=== PATIENT | female | born 1940 | race Caucasian/White ===

== ENCOUNTER 2016-07-06 11:18 | Emergency (ER) | payer BC, OTHER ==
[~2016-07-06] VITALS: Ht 160 cm; Wt 84.0 kg
[~2016-07-06 11:18] MED LIST: AMLODIPINE BESY10 MG PO; ANTIVERT25 MG PO; ATARAX,VISTARIL25 MG PO; BUSPIRONE HCL5 MG PO; CHLORTHALIDONE50 MG PO; CITALOPRAM HBR20 MG PO; CORTIZONE-10 PL57 GM TP; CRESTOR20 MG PO; CYMBALTA60 MG PO; Ecotrin PO; FLEXERIL10 MG PO; HUMALOG100 UNIT/2 SC; LEVEMIR100 UNIT/2 SC; LEVOTHROID100 MCG PO; LORTAB 5-325 M1 EACH PO; LOSARTAN POTAS100 MG PO; MACROBID100 MG PO; MOTRIN600 MG PO; NEXIUM40 MG PO; PREDNISONE20 MG PO; REQUIP4 MG PO; SKELAXIN800 MG PO; ULTRAM50 MG PO; VENLAFAXINE H37.5 MG PO; VITAMIN D31000 UNIT PO
[2016-07-06 11:56] LABS: HEMATOCRIT 39.5 % (36.0-46.0); MCH 30.8 PG (29.0-34.0); MCHC 35.2 G/DL (30.0-36.0); MCV 87.6 FL (83-99); MEAN PLAT.VOLUME 10.1 uM^3 (9.5-12.4); PLATELET COUNT 158 K/uL (156-360); RBC DIS.WIDTH-CV 13.1 % (11.8-14.6); RBC DIS.WIDTH-SD 40.8 % (39-53); RED BLOOD COUNT 4.51 M/uL (3.80-5.20); WHITE BLOOD COUNT 4.2 K/uL (4.1-10.2)
[2016-07-06 12:07] LABS: CHLORIDE 104 mEq/L (99-109); POTASSIUM 4.3 mEq/L (3.7-5.4); SODIUM 141 mEq/L (136-147)
[2016-07-06 12:10] LABS: GLUCOSE 179 mg/dL (70-99)
[2016-07-06 12:11] LABS: ANION GAP 13 MEQ/L (2-14)
[2016-07-06 12:12] LABS: TOTAL BILIRUBIN 0.4 mg/dL (0.0-1.0)
[2016-07-06 12:13] LABS: ALKALINE PHOSPHATASE 59 IU/L (3-129); GFR ESTIMATE (CALCULATED) 58 mL/min/
[2016-07-06 12:14] LABS: UREA NITROGEN (BUN) 18 mg/dL (9-23)
[2016-07-06 12:17] LABS: LIPASE 22 U/L (1.0-51.0)
[2016-07-06 12:45] LABS: ADD MIUA? YES; BILIRUBIN NEGATIVE; BLOOD NEGATIVE; COLOR YELLOW ((YELLOW)); GLUCOSE (STRIP) NEGATIVE; KETONES NEGATIVE; LEUKOCYTES MODERATE; NITRITE NEGATIVE; PROTEIN (STRIP) TRACE; SPECIFIC GRAVITY 1.029 (1.000-1.030); UROBILINOGEN 0.2 MG/DL (0.2-1.0)
[2016-07-06 13:00] LABS: EPITHELIAL CELLS 1+; MUCUS NONE SEEN; RED BLOOD CELLS RARE /HPF (0-5)
[2016-07-06 13:01] LABS: BACTERIA RARE; CASTS NONE SEEN /LPF; CRYSTALS NONE SEEN; UCUL ADDED? NO
[2016-07-06] MEDS ORDERED: FLOMAX0.4 MG PO (16:14)
[2016-07-06 16:39] VITALS: BP 163/84
== END 2016-07-06 16:39 | disposition home or self-care (01) ==
LOC: EME 11:18
DX: N20.0 Calculus of kidney (principal); R10.13 Epigastric pain; E11.9 Type 2 diabetes mellitus without complications; I10 Essential (primary) hypertension; Z87.442 Personal history of urinary calculi
CPT/HCPCS: 71020; 74177; 80053; 81003; 83690; 85027; 93005; 99281; 99285; J2405; J7030

== ENCOUNTER 2016-07-09 11:09 | Observation (INO) | payer BC, OTHER ==
[2016-07-08 21:15] VITALS: BP 166/86
[~2016-07-09] VITALS: Ht 160 cm; Wt 97.1 kg
[~2016-07-09 11:09] MED LIST changes: +FLOMAX0.4 MG PO
[2016-07-09 11:59] LABS: HEMATOCRIT 37.7 % (36.0-46.0); MCHC 35.8 G/DL (30.0-36.0); MCV 86.5 FL (83-99); MEAN PLAT.VOLUME 10.1 uM^3 (9.5-12.4); PLATELET COUNT 141 K/uL (156-360); RBC DIS.WIDTH-CV 12.8 % (11.8-14.6); RBC DIS.WIDTH-SD 39.7 % (39-53); RED BLOOD COUNT 4.36 M/uL (3.80-5.20); WHITE BLOOD COUNT 3.2 K/uL (4.1-10.2)
[2016-07-09 12:13] LABS: CHLORIDE 104 mEq/L (99-109); POTASSIUM 3.5 mEq/L (3.7-5.4); SODIUM 140 mEq/L (136-147)
[2016-07-09 12:16] LABS: GLUCOSE 182 mg/dL (70-99)
[2016-07-09 12:17] LABS: ANION GAP 10 MEQ/L (2-14)
[2016-07-09 12:19] LABS: ALKALINE PHOSPHATASE 58 IU/L (3-129); GFR ESTIMATE (CALCULATED) 52 mL/min/
[2016-07-09 12:20] LABS: UREA NITROGEN (BUN) 22 mg/dL (9-23)
[2016-07-09 12:21] LABS: TOTAL BILIRUBIN 0.8 mg/dL (0.0-1.0)
[2016-07-09 12:43] LABS: ADD MIUA? YES; BILIRUBIN NEGATIVE; BLOOD NEGATIVE; COLOR YELLOW ((YELLOW)); GLUCOSE (STRIP) NEGATIVE; KETONES NEGATIVE; LEUKOCYTES MODERATE; NITRITE NEGATIVE; PH, URINE 6.5 (5-8); PROTEIN (STRIP) NEGATIVE; UROBILINOGEN 0.2 MG/DL (0.2-1.0)
[2016-07-09 13:04] LABS: RED BLOOD CELLS NONE SEEN /HPF (0-5)
[2016-07-09 13:05] LABS: BACTERIA RARE; CASTS NONE SEEN /LPF; CRYSTALS NONE SEEN; EPITHELIAL CELLS 1+; MUCUS NONE SEEN; UCUL ADDED? NO
[2016-07-09] MEDS ORDERED: HYDROCODON-ACE1 EAC7 PO (15:44)
[2016-07-09] MEDS ORDERED: HYDROCHLOROTH12.5 M3 PO (15:45)
[2016-07-09] MEDS ORDERED: LYRICA50 MG PO (15:46)
[2016-07-09] MEDS ORDERED: BUSPIRONE HCL10 MG PO (16:36)
[2016-07-09] MEDS ORDERED: SALINE MIST45 ML BOTH NARES (16:38)
[2016-07-09 17:50] VITALS: BP 141/84
[2016-07-09 20:00] VITALS: BP 191/82
[2016-07-09 21:45] LABS: POINT-OF-CARE METER ID UU13113700
[2016-07-09 23:47] VITALS: BP 166/72
[2016-07-10 04:17] VITALS: BP 168/79
[2016-07-10 05:57] LABS: EOSINOPHIL (%) 2.4 % (0-5); EOSINOPHIL COUNT 0.1 K/uL (0-0.3); HEMATOCRIT 33.7 % (36.0-46.0); IMMATURE GRANULOCYTE (%) 0.3 % (0.0-0.7); LYMPHOCYTE COUNT 1.5 K/uL (1.0-2.8); MCHC 34.4 G/DL (30.0-36.0); MCV 90.1 FL (83-99); MEAN PLAT.VOLUME 10.5 uM^3 (9.5-12.4); MONOCYTE (%) 15.5 % (3-12); MONOCYTE COUNT 0.5 K/uL (0-0.8); NEUTROPHIL (%) 36.4 % (45-76); NEUTROPHIL COUNT 1.2 K/uL (1.8-6.4); PLATELET COUNT 135 K/uL (156-360); RBC DIS.WIDTH-CV 13.3 % (11.8-14.6); RBC DIS.WIDTH-SD 43.8 % (39-53); RED BLOOD COUNT 3.74 M/uL (3.80-5.20); WHITE BLOOD COUNT 3.3 K/uL (4.1-10.2)
[2016-07-10 06:23] LABS: ANION GAP 9 MEQ/L (2-14); CHLORIDE 108 MEQ/L (99-109); GFR ESTIMATE (CALCULATED) 58 mL/min/; GLUCOSE 122 mg/dL (70-99); POTASSIUM 3.5 MEQ/L (3.7-5.4); SAMPLE HEMOLYSIS CHECK 0; SAMPLE ICTERIC CHECK 0; SAMPLE LIPEMIA CHECK 0; SODIUM 141 MEQ/L (136-147); UREA NITROGEN (BUN) 15 mg/dL (9-23)
[2016-07-10 07:00] LABS: POINT-OF-CARE METER ID UU13113700
[2016-07-10 07:46] VITALS: BP 174/85
[2016-07-10 12:34] VITALS: BP 194/88
[2016-07-10 12:51] LABS: POINT-OF-CARE METER ID UU14162513
[2016-07-10] MEDS ORDERED: PERCOCET 5/31 TABLET PO (14:01)
[2016-07-10] MEDS ORDERED: TRAZODONE HCL50 MG PO (14:01)
== END 2016-07-10 17:11 | disposition home or self-care (01) ==
LOC: EME 11:09 → EDOF 16:24 → 5WEST 16:24
PROVIDERS: Emergency Medicine; Family Medicine
DX: G89.29 Other chronic pain (principal); R10.32 Left lower quadrant pain; M51.26 Other intervertebral disc displacement, lumbar region; R20.0 Anesthesia of skin; N20.0 Calculus of kidney; I10 Essential (primary) hypertension; E78.5 Hyperlipidemia, unspecified; E03.9 Hypothyroidism, unspecified; F32.9 Major depressive disorder, single episode, unspecified; E11.9 Type 2 diabetes mellitus without complications; G25.81 Restless legs syndrome; Z96.649 Presence of unspecified artificial hip joint; Z88.8 Allergy status to other drugs, medicaments and biological substances
CPT/HCPCS: 74176; 80048; 80053; 81003; 82948; 83605; 85025; 85027; 99281; 99284; G0378; J0360; J1650; J1815; J1885; J2270; J2405; J7030

== ENCOUNTER 2016-08-07 14:00 | Inpatient (IN) | payer OTHER ==
[~2016-08-07] VITALS: Ht 162.6 cm; Wt 82.0 kg
[~2016-08-07 14:00] MED LIST changes: +BUSPIRONE HCL10 MG PO; +HYDROCHLOROTH12.5 M3 PO; +HYDROCODON-ACE1 EAC7 PO; +LYRICA50 MG PO; +PERCOCET 5/31 TABLET PO; +SALINE MIST45 ML BOTH NARES; +TRAZODONE HCL50 MG PO
[2016-08-07 16:05] LABS: HEMATOCRIT 37.8 % (36.0-46.0); MCH 30.9 PG (29.0-34.0); MCHC 35.2 G/DL (30.0-36.0); MCV 87.7 FL (83-99); MEAN PLAT.VOLUME 10.1 uM^3 (9.5-12.4); PLATELET COUNT 155 K/uL (156-360); RBC DIS.WIDTH-CV 12.7 % (11.8-14.6); RBC DIS.WIDTH-SD 39.7 % (39-53); RED BLOOD COUNT 4.31 M/uL (3.80-5.20)
[2016-08-07 16:11] LABS: CHLORIDE 106 mEq/L (99-109); POTASSIUM 4.1 mEq/L (3.7-5.4); SODIUM 141 mEq/L (136-147)
[2016-08-07 16:13] LABS: GLUCOSE 129 mg/dL (70-99)
[2016-08-07 16:15] LABS: ANION GAP 8 MEQ/L (2-14)
[2016-08-07 16:16] LABS: SERUM ETHYL ALCOHOL < 10 mg/dL
[2016-08-07 16:17] LABS: GFR ESTIMATE (CALCULATED) 58 mL/min/
[2016-08-07 16:19] LABS: UREA NITROGEN (BUN) 18 mg/dL (9-23)
[2016-08-07 16:20] LABS: SALICYLATE < 5.0 MG/DL (15-30)
[2016-08-07] MEDS ORDERED: NORVASC5 MG PO (18:55)
[2016-08-07] MEDS ORDERED: PRILOSEC OTC20 MG PO (18:57)
[2016-08-07 19:57] LABS: AMPHETAMINE NEGATIVE (500 ng/mL); BARBITURATES NEGATIVE (200 ng/mL); BENZODIAZEPINES NEGATIVE (150 ng/mL); COCAINE NEGATIVE (150 ng/mL); INTERNAL CONTROLS VALID? YES; METHADONE NEGATIVE (200 ng/mL); METHAMPHETAMINE NEGATIVE (500 ng/mL); OPIATES (MORPHINE) NEGATIVE (100 ng/mL); OXYCODONE NEGATIVE (100 ng/mL); PHENCYCLIDINE NEGATIVE (25 ng/mL); PROPOXYPHENE NEGATIVE (300 ng/mL); THC CANNABINOIDS NEGATIVE (50 ng/mL); TRICYCLIC ANTIDEPRESSANTS NEGATIVE (300 ng/mL)
[2016-08-07 21:55] VITALS: BP 154/77
[2016-08-07 23:51] LABS: POINT-OF-CARE METER ID UU13113830
[2016-08-08 07:44] VITALS: BP 170/87
[2016-08-08 10:24] LABS: POINT-OF-CARE METER ID UU13113830
[2016-08-08 11:42] LABS: POINT-OF-CARE METER ID UU13113830
[2016-08-08 15:43] VITALS: BP 174/75
[2016-08-08 16:55] LABS: POINT-OF-CARE METER ID UU13113830
[2016-08-08 21:04] LABS: POINT-OF-CARE METER ID UU13113830; POINT-OF-CARE USER ID BHSSMG
[2016-08-09 06:16] LABS: POINT-OF-CARE METER ID UU13113830; POINT-OF-CARE USER ID ENVTLS63
[2016-08-09 07:50] VITALS: BP 154/72
[2016-08-09 11:50] LABS: POINT-OF-CARE METER ID UU13113830
[2016-08-09 15:29] VITALS: BP 149/73
[2016-08-09 16:38] LABS: POINT-OF-CARE METER ID UU13113830
[2016-08-09 21:07] LABS: POINT-OF-CARE METER ID UU13113830; POINT-OF-CARE USER ID ENVTLS63
[2016-08-10 06:33] LABS: POINT-OF-CARE METER ID UU13113830; POINT-OF-CARE USER ID ENVTLS63
[2016-08-10 09:52] VITALS: BP 149/72
[2016-08-10] MEDS ORDERED: DULOXETINE HCL30 MG PO (13:17)
[2016-08-10] MEDS ORDERED: NORVASC5 MG PO (13:28)
[2016-08-10] MEDS ORDERED: HYDROCHLOROTH12.5 M3 PO (13:28)
[2016-08-10] MEDS ORDERED: PRILOSEC OTC20 MG PO (13:28)
[2016-08-10] MEDS ORDERED: TRAZODONE HCL50 MG PO (13:28)
== END 2016-08-10 14:37 | disposition home or self-care (01) | DRG 881 ==
LOC: EME 14:00 → 1WEST 17:44 → EDOF 17:44 → 1WEST 21:53
PROVIDERS: Emergency Medicine; Psychiatry & Neurology Psychiatry
DX: F32.9 Major depressive disorder, single episode, unspecified (principal); F41.9 Anxiety disorder, unspecified; T42.6X2A Poisoning by other antiepileptic and sedative-hypnotic drugs, intentional self-harm, initial encounter; E11.9 Type 2 diabetes mellitus without complications; G89.29 Other chronic pain; I10 Essential (primary) hypertension; K21.9 Gastro-esophageal reflux disease without esophagitis; Z79.4 Long term (current) use of insulin
CPT/HCPCS: 80048; 82948; 84443; 85027; 90839; 97150 GO; 97166 GO; 99281; 99285; G0480; J1815

== ENCOUNTER 2017-11-22 11:18 | Emergency (ER) | payer BC, OTHER ==
[~2017-11-22] VITALS: Ht 160 cm; Wt 84.4 kg
[~2017-11-22 11:18] MED LIST changes: +DULOXETINE HCL30 MG PO; +NORVASC5 MG PO; +PRILOSEC OTC20 MG PO
[2017-11-22 12:59] LABS: BASOPHIL (%) 0.1 % (0-1); EOSINOPHIL (%) 0.1 % (0-5); HEMATOCRIT 34.7 % (36.0-46.0); HEMOGLOBIN 12.3 G/DL (11.9-15.5); IMMATURE GRANULOCYTE (%) 0.4 % (0.0-0.7); LYMPHOCYTE (%) 11.7 % (15-42); LYMPHOCYTE COUNT 1.1 K/uL (1.0-2.8); MCH 31.1 PG (29.0-34.0); MCHC 35.4 G/DL (30.0-36.0); MCV 87.8 FL (83-99); MONOCYTE (%) 10.7 % (3-12); NEUTROPHIL COUNT 7.2 K/uL (1.8-6.4); PLATELET COUNT 125 K/uL (156-360); RBC DIS.WIDTH-CV 12.7 % (11.8-14.6); RBC DIS.WIDTH-SD 40.9 % (39-53); RED BLOOD COUNT 3.95 M/uL (3.80-5.20); WHITE BLOOD COUNT 9.3 K/uL (4.1-10.2)
[2017-11-22 13:07] LABS: CHLORIDE 104 mEq/L (99-109); POTASSIUM 4.2 mEq/L (3.7-5.4); SODIUM 140 mEq/L (136-147)
[2017-11-22 13:10] LABS: GLUCOSE 156 mg/dL (70-99); TOTAL PROTEIN 7.1 g/dL (6.4-8.3)
[2017-11-22 13:12] LABS: TOTAL BILIRUBIN 1.1 mg/dL (0.0-1.0)
[2017-11-22 13:13] LABS: ALKALINE PHOSPHATASE 41 IU/L (3-129); GFR ESTIMATE (CALCULATED) 57 mL/min/
[2017-11-22 13:14] LABS: UREA NITROGEN (BUN) 11 mg/dL (9-23)
[2017-11-22 13:15] LABS: AST (GOT) 22 IU/L (2-34)
[2017-11-22 13:16] LABS: ALT (GPT) 26 IU/L (3-49)
[2017-11-22 13:17] LABS: LIPASE 12 U/L (1.0-51.0)
[2017-11-22] MEDS ORDERED: ZOFRAN4 MG PO (14:43)
[2017-11-22 15:00] VITALS: BP 190/87
== END 2017-11-22 15:05 | disposition home or self-care (01) ==
LOC: EME 11:18
PROVIDERS: Emergency Medicine
DX: R11.2 Nausea with vomiting, unspecified (principal); K21.9 Gastro-esophageal reflux disease without esophagitis; I10 Essential (primary) hypertension; E11.9 Type 2 diabetes mellitus without complications; F31.9 Bipolar disorder, unspecified; F41.9 Anxiety disorder, unspecified; M19.90 Unspecified osteoarthritis, unspecified site; Z79.4 Long term (current) use of insulin; Z88.8 Allergy status to other drugs, medicaments and biological substances
CPT/HCPCS: 74022; 80053; 83690; 85025; 99281; 99285; J2405; J7030

== ENCOUNTER 2017-11-24 14:15 | Observation (INO) | payer BC, OTHER ==
[~2017-11-24] VITALS: Ht 160 cm; Wt 84.2 kg
[~2017-11-24 14:15] MED LIST changes: +ZOFRAN4 MG PO
[2017-11-24 14:42] LABS: HEMATOCRIT 36.7 % (36.0-46.0); HEMOGLOBIN 12.8 G/DL (11.9-15.5); MCH 31.2 PG (29.0-34.0); MCHC 34.9 G/DL (30.0-36.0); MCV 89.5 FL (83-99); PLATELET COUNT 142 K/uL (156-360); RBC DIS.WIDTH-CV 13.2 % (11.8-14.6); RBC DIS.WIDTH-SD 43.2 % (39-53); WHITE BLOOD COUNT 8.3 K/uL (4.1-10.2)
[2017-11-24 14:51] LABS: CHLORIDE 105 mEq/L (99-109); POTASSIUM 4.3 mEq/L (3.7-5.4); SODIUM 142 mEq/L (136-147)
[2017-11-24 14:53] LABS: GLUCOSE 193 mg/dL (70-99)
[2017-11-24 14:57] LABS: CREATININE 1.3 mg/dL (0.6-1.3); GFR ESTIMATE (CALCULATED) 42 mL/min/
[2017-11-24 15:03] LABS: TROP-I INTERPRETATION NEGATIVE; TROPONIN-I 0.01 ng/mL (0.0-0.30)
[2017-11-24 15:04] LABS: UREA NITROGEN (BUN) 24 mg/dL (9-23)
[2017-11-24 15:06] LABS: CREATINE KINASE 1065 IU/L (1-294)
[2017-11-24] MEDS ORDERED: AMITRIPTYLINE H25 MG PO (16:07)
[2017-11-24] MEDS ORDERED: DULOXETINE HCL30 MG PO (16:07)
[2017-11-24] MEDS ORDERED: LEVOTHYROXINE50 MCG PO (16:08)
[2017-11-24] MEDS ORDERED: DULOXETINE HCL60 MG PO (16:08)
[2017-11-24] MEDS ORDERED: HYDROCHLOROTHIA25 MG PO (16:08)
[2017-11-24] MEDS ORDERED: LISINOPRIL40 MG PO (16:09)
[2017-11-24] MEDS ORDERED: METFORMIN HCL1000 MG PO (16:09)
[2017-11-24] MEDS ORDERED: NEXIUM20 MG PO (16:09)
[2017-11-24] MEDS ORDERED: ZOFRAN4 MG PO (16:10)
[2017-11-24 18:44] VITALS: BP 143/70
[2017-11-24 20:00] VITALS: BP 134/63
[2017-11-24 23:51] VITALS: BP 128/62
[2017-11-25 04:08] VITALS: BP 129/64
[2017-11-25 05:21] LABS: HEMATOCRIT 29.8 % (36.0-46.0); MCH 29.9 PG (29.0-34.0); MCHC 33.2 G/DL (30.0-36.0); PLATELET COUNT 131 K/uL (156-360); RBC DIS.WIDTH-CV 13.2 % (11.8-14.6); RBC DIS.WIDTH-SD 43.4 % (39-53); RED BLOOD COUNT 3.31 M/uL (3.80-5.20); WHITE BLOOD COUNT 3.9 K/uL (4.1-10.2)
[2017-11-25 05:37] LABS: HEMOGLOBIN 9.9 G/DL (11.9-15.5)
[2017-11-25 05:41] LABS: SODIUM 144 MEQ/L (136-147); UREA NITROGEN (BUN) 19 mg/dL (9-23)
[2017-11-25 05:53] LABS: CHLORIDE 112 MEQ/L (99-109); CREATININE 0.8 MG/DL (0.6-1.3); GFR ESTIMATE (CALCULATED) > 59 mL/min/; GLUCOSE 104 mg/dL (70-99); POTASSIUM 3.2 MEQ/L (3.7-5.4)
[2017-11-25 05:56] LABS: CREATINE KINASE 669 IU/L (1-294)
[2017-11-25 07:25] VITALS: BP 178/79
[2017-11-25 12:12] VITALS: BP 155/73
== END 2017-11-25 13:57 | disposition home or self-care (01) ==
LOC: EME 14:15 → 4SOUTH 16:01 → EDOF 16:01 → ENRESERV 16:02 → 4SOUTH 18:13 → ENPENDDIS 11-25 → 4SOUTH 11-25 13:57
PROVIDERS: Emergency Medicine; Hospitalist
DX: M62.82 Rhabdomyolysis (principal); I10 Essential (primary) hypertension; E11.9 Type 2 diabetes mellitus without complications; E03.9 Hypothyroidism, unspecified; Z79.4 Long term (current) use of insulin; Z90.710 Acquired absence of both cervix and uterus
CPT/HCPCS: 80048; 81003; 82550; 82948; 84484; 85027; 93005; 99281; 99285; G0378; J1644; J1815; J7030